=== PATIENT | female | born 2000 | race Caucasian/White ===

== ENCOUNTER 2020-10-21 15:59 | Emergency (ER) | payer OTHER ==
[~2020-10-21] VITALS: Ht 162.6 cm; Wt 65.8 kg
[2020-10-21 16:10] VITALS: BP 129/79
--- NOTE | 2020-10-21 16:41 | NUR ---
medically cleared by dr dunn d/c to pd in stable condition.
== END 2020-10-21 16:49 ==
LOC: ER 16:03
DX: Z02.89 Encounter for other administrative examinations (principal)